=== PATIENT | female | born 1965 | race Caucasian/White ===

== ENCOUNTER 2017-02-12 11:22 | Inpatient (IN) | payer OTHER ==
[~2017-02-12] VITALS: Ht 160 cm; Wt 52.2 kg
--- NOTE | ~2017-02-12 | EKG ---
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 : 1965 Requested By: Rodney Izaguirre Order Number: [id number] MD: Ezekiel Fountain Measurements Intervals [place] Rate: 116 P: 85 [place]: 170 QRS: 85 QRSD: 85 T: 19 QT: 356 QTc: 495 Interpretive Statements Sinus tachycardia Abnormal R-wave progression, early transition Borderline T abnormalities, anterior leads Borderline prolonged QT interval No previous ECG available for comparison Electronically Signed On 02-14-2017 8:56:39 CDT by Ezekiel Fountain [email or web address] <ELECTRONICALLY SIGNED> By: Ezekiel Fountain MD, [facility] 02/14/17 0856 [id number] Ezekiel Fountain MD, [facility] /EPI
--- NOTE | ~2017-02-12 | EKG ---
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
[~2017-02-12 11:22] MED LIST: ALPRAZOLAM 0.0.25 M1 OR; CREON DR 12,001 EACH OR; NORCO 5-325 TA1 EACH OR; THERA-M CAPLET1 EACH OR
[2017-02-12 11:23] VITALS: BP 129/81
[2017-02-12] MEDS ORDERED: LAMICTAL 25 MG25 M1 PO (11:39)
[2017-02-12] MEDS ORDERED: ESCITALOPRAM OX20 MG PO (11:43)
[2017-02-12] MEDS ORDERED: NEURONTIN 300300 M1 PO (11:43)
[2017-02-12] MEDS ORDERED: ESCITALOPRAM OX10 MG PO (11:44)
[2017-02-12 12:15] LABS: ANION GAP 8 mmol/L (7-16); BUN 26 mg/dL (7-18); CHLORIDE 108 mmol/L (98-107); CO2 23 mmol/L (21-32); CREATININE 0.5 mg/dL (0.6-1.0); GLUCOSE 82 mg/dL (74-106); POTASSIUM 3.4 mmol/L (3.5-5.1); SODIUM 139 mmol/L (136-145)
[2017-02-12 12:17] LABS: ABSOLUTE NEUTROPHILS 6.1 thou/uL (1.4-8.2); BASOPHILS 0.4 % (0.0-2.0); EOSINOPHILS 0.8 % (0.0-3.0); HEMATOCRIT 30.2 % (37.0-47.0); HEMOGLOBIN 9.8 gm/dL (12.0-15.0); MCH 34.9 pg (26.0-34.0); MCHC 32.4 g/dL (28.0-37.0); MCV 107.7 fL (80.0-100.0); MONOCYTES 5.7 % (1.0-8.0); PLATELET COUNT 303 thou/uL (150-400); POLYS 69.1 % (36.0-66.0); RDW 13.7 % (10.5-14.5); WBC 8.7 thou/uL (4.0-11.0)
[2017-02-12] MEDS ORDERED: NORCO 10-325 T1 EACH PO (12:17)
[2017-02-12 12:18] LABS: MANUAL DIFF NO
[2017-02-12 12:18] LABS: URINE BILIRUBIN NEGATIVE (Negative); URINE BLOOD NEGATIVE (Negative); URINE COLOR YELLOW; URINE GLUCOSE-RANDOM* NEGATIVE (Negative); URINE KETONES NEGATIVE (Negative); URINE LEUKOCYTES-REFLEX NEGATIVE (Negative); URINE PROTEIN (DIPSTICK) NEGATIVE (Negative); URINE UROBILINOGEN 0.2 E.U./dl (0.2-1.0)
[2017-02-12 12:22] LABS: ALBUMIN 2.3 g/dL (3.4-5.0); ALKALINE PHOSPHATASE 162 U/L (46-116); MAGNESIUM 1.6 mg/dL (1.8-2.4); SGOT 28 U/L (15-37); SGPT 29 U/L (30-65); TOTAL BILIRUBIN 0.2 mg/dL (<0.1-1.0); TOTAL PROTEIN 5.3 g/dL (6.4-8.2); TROPONIN-I < 0.04 ng/mL (<0.04-0.07)
[2017-02-12 12:26] LABS: AMP/METHAMP Negative (Negative); BARBITURATES Negative (Negative); BENZODIAZEPINES Negative (Negative); COCAINE Negative (Negative); METHADONE Negative (Negative); OPIATES Negative (Negative); PCP Negative (Negative); THC Negative (Negative)
[2017-02-12 14:04] VITALS: BP 129/81
[2017-02-12 15:09] VITALS: BP 120/79
[2017-02-12] MEDS ORDERED: AMITRIPTYLINE H25 M3 PO (15:19)
[2017-02-12 18:26] VITALS: BP 112/77
[2017-02-12 19:29] VITALS: BP 104/64
[2017-02-13 03:30] LABS: ABSOLUTE NEUTROPHILS 2.4 thou/uL (1.4-8.2); BASOPHILS 0.5 % (0.0-2.0); HEMATOCRIT 28.3 % (37.0-47.0); HEMOGLOBIN 9.2 gm/dL (12.0-15.0); LYMPHOCYTES 43.6 % (24.0-44.0); MCH 35.2 pg (26.0-34.0); MCHC 32.6 g/dL (28.0-37.0); MCV 107.9 fL (80.0-100.0); MONOCYTES 9.3 % (1.0-8.0); PLATELET COUNT 284 thou/uL (150-400); POLYS 43.6 % (36.0-66.0); RBC 2.62 mil/uL (4.20-5.00); RDW 13.7 % (10.5-14.5); WBC 5.6 thou/uL (4.0-11.0)
[2017-02-13 03:31] LABS: MANUAL DIFF NO
[2017-02-13 03:36] LABS: CALCIUM 7.6 mg/dL (8.5-10.1); CREATININE 0.6 mg/dL (0.6-1.0); MAGNESIUM 2.3 mg/dL (1.8-2.4); POTASSIUM 4.2 mmol/L (3.5-5.1)
[2017-02-13 05:23] VITALS: BP 105/71
[2017-02-13 07:26] VITALS: BP 102/67
[2017-02-13 15:46] VITALS: BP 94/63
[2017-02-13 20:24] VITALS: BP 92/50
[2017-02-14 04:00] VITALS: BP 93/65
[2017-02-14 04:52] LABS: ABSOLUTE NEUTROPHILS 2.2 thou/uL (1.4-8.2); BASOPHILS 0.5 % (0.0-2.0); EOSINOPHILS 4.1 % (0.0-3.0); HEMATOCRIT 25.8 % (37.0-47.0); HEMOGLOBIN 8.7 gm/dL (12.0-15.0); LYMPHOCYTES 38.6 % (24.0-44.0); MCH 36.1 pg (26.0-34.0); MCHC 33.7 g/dL (28.0-37.0); MCV 106.9 fL (80.0-100.0); MONOCYTES 9.8 % (1.0-8.0); PLATELET COUNT 267 thou/uL (150-400); RBC 2.41 mil/uL (4.20-5.00); RDW 13.5 % (10.5-14.5); WBC 4.7 thou/uL (4.0-11.0)
[2017-02-14 04:55] LABS: MANUAL DIFF NO
[2017-02-14 05:49] LABS: CALCIUM 7.3 mg/dL (8.5-10.1); CREATININE 0.6 mg/dL (0.6-1.0); POTASSIUM 5.4 mmol/L (3.5-5.1); TOTAL BILIRUBIN 0.2 mg/dL (<0.1-1.0); TOTAL PROTEIN 4.7 g/dL (6.4-8.2)
[2017-02-14 08:00] VITALS: BP 97/64
[2017-02-14] MEDS ORDERED: LAMICTAL 25 MG25 M1 PO (09:01)
[2017-02-14] MEDS ORDERED: B12INJ IM (09:01)
[2017-02-14 09:07] VITALS: BP 97/64
== END 2017-02-14 12:14 | disposition home or self-care (01) | DRG 100 ==
LOC: ER 11:22 → EROBS 13:41 → 5S 13:41 → 4S 13:41 → EROBS 13:41 → 5S 14:38 → 4S 18:01
PROVIDERS: Emergency Medicine; Internal Medicine Geriatric Medicine; Nurse Practitioner Family
DX: G40.909 Epilepsy, unspecified, not intractable, without status epilepticus (principal); E43 Unspecified severe protein-calorie malnutrition; N17.9 Acute kidney failure, unspecified; T50.901A Poisoning by unspecified drugs, medicaments and biological substances, accidental (unintentional), initial encounter; E88.09 Other disorders of plasma-protein metabolism, not elsewhere classified; Z60.2 Problems related to living alone; E83.51 Hypocalcemia; E16.2 Hypoglycemia, unspecified; E83.42 Hypomagnesemia; D64.9 Anemia, unspecified; F11.10 Opioid abuse, uncomplicated; G47.00 Insomnia, unspecified; E87.6 Hypokalemia; Z79.899 Other long term (current) drug therapy; Z90.3 Acquired absence of stomach [part of]; Z90.49 Acquired absence of other specified parts of digestive tract; Z88.1 Allergy status to other antibiotic agents; Z88.8 Allergy status to other drugs, medicaments and biological substances; Z68.20 Body mass index [BMI] 20.0-20.9, adult
CPT/HCPCS: 10100